=== PATIENT | female | born 1995 | race Caucasian/White ===

== ENCOUNTER 2018-09-14 12:02 | Emergency (ER) | payer OTHER ==
[2018-09-14 12:07] VITALS: O2SAT 100
--- NOTE | 2018-09-14 12:22 | C.PDOC ---
History Of Present Illness 22 y/o female c/o dysuria since yesterday. denies frequency and urgency. denies fever, chill, nausea and vomiting. denies abdominal pain. lmp 09/07. denies vaginal discharge. Time Seen by Provider: 09/14/18 12:14 Chief Complaint (Nursing): Female Genitourinary History Per: Patient History/Exam Limitations: no limitations Onset/Duration Of Symptoms: Days (2) Severity: Mild Quality Of Discomfort: Burning Associated Symptoms: Urinary Symptoms. denies: Fever, Chills, Nausea, Vomiting, Loss Of Appetite Alleviating Factors: None Last Menstral Period: 09/07 Past Medical History Reviewed: Historical Data, Nursing Documentation, Vital Signs Vital Signs: Last Vital Signs Temp 97.7 F 09/14/18 12:04 Pulse 82 09/14/18 12:04 Resp 17 09/14/18 12:04 BP 109/76 09/14/18 12:04 Pulse Ox 100 09/14/18 12:04 - Medical History PMH: No Chronic Diseases Family History: States: Unknown Family Hx - Social History Hx Alcohol Use: Yes Hx Substance Use: No - Immunization History Hx Tetanus Toxoid Vaccination: No Hx Influenza Vaccination: No Hx Pneumococcal Vaccination: No Review Of Systems Constitutional: Negative for: Fever, Chills Cardiovascular: Negative for: Chest Pain Respiratory: Negative for: Cough Gastrointestinal: Negative for: Nausea, Vomiting, Abdominal Pain Genitourinary: Positive for: Dysuria. Negative for: Frequency, Vaginal Discharge, Vaginal Bleeding, Pelvic Pain Skin: Negative for: Rash Neurological: Negative for: Weakness, Numbness Physical Exam - Physical Exam Appears: Non-toxic, No Acute Distress Skin: Warm, Dry Head: Atraumatic, Normacephalic Eye(s): bilateral: Normal Inspection Neck: Supple Cardiovascular: Rhythm Regular, No Murmur Respiratory: No Decreased Breath Sounds, No Rales, No Rhonchi, No Wheezing Gastrointestinal/Abdominal: Bowel Sounds, Soft, No Tenderness, No Distention, No Guarding, No Rebound Back: No CVA Tenderness Extremity: No Tenderness, No Swelling Neurological/Psych: Oriented x3, Normal Speech, Normal Cognition ED Course And Treatment O2 Sat by Pulse Oximetry: 100 Medical Decision Making Medical Decision Makin22 y/o female with dysuria. ua/upreg 1322 pt with neg poc,. ua with +1 le, only few wbc, but pt symptomatic, will treat with macrobid. f/u mass spectrometry manager. Disposition Counseled Patient/Family Regarding: Studies Performed, Diagnosis, Need For Followup, Rx Given - Disposition Referrals: [facility] [Outside] Disposition: HOME/ ROUTINE Disposition Time: 13:23 Condition: GOOD Additional Instructions: Take antibiotics as prescribed. Follow up with mass spectrometry manager in the next week; either one of your choice or call clinic and get appt with [facility]. Recommend no sexual activity until seen by mass spectrometry manager and antibiotics are done. Drink increased fluids. Prescriptions: Nitrofurantoin Macrocrystals [Macrobid] 100 mg PO BID #14 cap Instructions: Urinary Tract Infection, Adult (DC) Forms: [facility] (Dominican), General Discharge Instructions - Clinical Impression Clinical Impression: UTI (urinary tract infection)
[2018-09-14 12:49] LABS: SQUAMOUS EPITHIAL 3 /hpf (0-5); URINE BACTERIA RARE (<OCC); URINE BILIRUBIN NEGATIVE (NEGATIVE); URINE BLOOD NEGATIVE (NEGATIVE); URINE CLARITY Clear (Clear); URINE COLOR Colorless (YELLOW); URINE GLUCOSE (UA) NORMAL (Normal); URINE LEUKOCYTE ESTERASE 1+ Leu/uL (Negative); URINE PROTEIN NEGATIVE (NEGATIVE); URINE UROBILINOGEN NORMAL mg/dL (0.2-1.0)
[2018-09-14 13:26] VITALS: BP 114/74; PULSE 86; RESP 18; TEMP 98.2
== END 2018-09-14 13:36 | disposition home or self-care (01) ==
LOC: C.ER 12:02
DX: N39.0 Urinary tract infection, site not specified (principal)